=== PATIENT | male | born 1965 | race Caucasian/White ===

== ENCOUNTER → 2021-12-20 11:20 | Outpatient (BNVA) | payer BC, SELFPAY | PROVIDERS: Family Provider Internal Medicine; Visit Provider Family Medicine | DX: Z00.00 Encounter for general adult medical examination without abnormal findings (principal); F32.A Depression, unspecified; E78.5 Hyperlipidemia, unspecified; I10 Essential (primary) hypertension; G47.33 Obstructive sleep apnea (adult) (pediatric) | CPT/HCPCS: 80053; 80061; 84153 ==

== ENCOUNTER → 2021-12-31 11:51 | Outpatient (BNVA) | payer BC, SELFPAY | PROVIDERS: Family Provider Internal Medicine; PCP Family Medicine; Visit Provider Family Medicine | DX: Z00.00 Encounter for general adult medical examination without abnormal findings (principal); G47.33 Obstructive sleep apnea (adult) (pediatric); F32.A Depression, unspecified; E78.5 Hyperlipidemia, unspecified; I10 Essential (primary) hypertension | CPT/HCPCS: 80053; 80061; 84153 ==

== ENCOUNTER → 2022-01-22 11:25 | Outpatient (BNVA) | payer BC, SELFPAY | PROVIDERS: Family Provider Internal Medicine; PCP Family Medicine; Visit Provider Family Medicine | DX: E11.8 Type 2 diabetes mellitus with unspecified complications (principal) | CPT/HCPCS: 80048; 83036 ==

== ENCOUNTER → 2022-04-19 07:40 | Outpatient (BNVA) | payer BC, SELFPAY | PROVIDERS: Family Provider Internal Medicine; PCP Family Medicine; Visit Provider Family Medicine | DX: Z00.00 Encounter for general adult medical examination without abnormal findings (principal); E11.9 Type 2 diabetes mellitus without complications | CPT/HCPCS: 80048; 83036 ==

== ENCOUNTER → 2022-10-10 07:51 | Outpatient (BNVA) | payer BC, SELFPAY | PROVIDERS: Family Provider Internal Medicine; PCP Family Medicine; Visit Provider Family Medicine | DX: E11.9 Type 2 diabetes mellitus without complications (principal) | CPT/HCPCS: 80053; 80061; 83036 ==

== ENCOUNTER → 2023-01-03 11:20 | Outpatient (BNVA) | payer BC, SELFPAY | PROVIDERS: Family Provider Internal Medicine; PCP Family Medicine; Visit Provider Clinical Nurse Specialist Adult Health | DX: E86.0 Dehydration (principal) | CPT/HCPCS: 80048 ==

== ENCOUNTER 2023-03-15 13:43 | Emergency (ER) | payer BC, SELFPAY ==
[2023-03-15 13:48] VITALS: BP 176/114; PULSE 83; RESP 16; TEMP 36.6; O2SAT 96
--- NOTE | 2023-03-15 14:41 | XRR_ITS ---
PROCEDURE INFORMATION: Exam: XR Chest Exam date and time: 03/15/2023 3:44 PM Age: 57 years old Clinical indication: Cough and dyspnea; Additional info: Dyspnea/cough TECHNIQUE: Imaging protocol: Radiologic exam of the chest. Views: 1 view. COMPARISON: No relevant prior studies available. FINDINGS: Lungs: Unremarkable. No consolidation. Pleural spaces: Unremarkable. No pleural effusion. No pneumothorax. Heart/Mediastinum: Unremarkable. No cardiomegaly. Bones/joints: Unremarkable. XR/XR chest 1V portable [id number] IMPRESSION: No acute findings.
--- NOTE | 2023-03-15 14:41 | ECG_ITS ---
[facility] Test Date: 2023-03-15 Pat Name: Catalino Mcknight Department: Room: Gender: Male Family Assistant: : 1965 Requested By: Zhang Crane Order Number: [id number] Cosme MD: Serenity Alfaro M.D. Measurements Intervals [place] Rate: 74 P: 14 MA: 166 QRS: -39 QRSD: 108 T: -1 QT: 391 QTc: 435 Interpretive Statements SINUS RHYTHM LEFT AXIS DEVIATION [QRS AXIS < -30] No previous ECG available for comparison Electronically Signed On 03-15-2023 23:25:35 CDT by Serenity Alfaro M.D. [id number]
--- NOTE | 2023-03-15 15:45 | W.ED.GENADLT ---
HPI - General Adult General: Chief complaint: General Medical Stated complaint: bp, headache, weakness Time Seen by Provider: 03/15/23 14:40 Source: patient Mode of arrival: ambulatory History of Present Illness: 57-year-old male presents emergency room complaining of elevated blood pressure over the last 2 weeks. He had some palpitations as well. He will have blood pressure medication this triamterene-hydrochlorothiazide. No recent medication changes. Denies chest pain or shortness of breath. Generally has not felt well for the last couple of weeks he states he has been irritable not eating well. The only other concurrent symptoms he has noticed difficulty starting his urine. He has an appointment in a few weeks to see Dr. Mccarthy for primary care. No recent medication changes. Onset (ago): week(s) (2) Associated symptoms: Deny chest pain, confusion, cough, diaphoresis, decreased appetite, dyspnea, fevers/chills, headache(s), malaise, nausea, rash, palpitations, seizures, short of breath, syncope, vomiting or weakness Review of Systems Const: Denies: fever(s), chills, malaise or diaphoresis ENMT: Denies: throat pain, ear or mastoid pain, nasal discharge or nasal congestion Card: Denies: chest pain, palpitations or syncope Resp: Denies: dyspnea GI: Denies: abdominal pain, nausea or vomiting : Reports: difficulty starting urination; Denies: flank pain, dysuria, urinary frequency or urinary urgency Musc: Denies: neck pain or back pain Skin/Breast: Denies: rash Neuro: Denies: headache(s) or confusion PFS ED PFSH: Medical History Diabetes mellitus Hypertension Physical Exam Const: GENERAL APPEARANCE: cooperative and comfortable ORIENTATION/CONSCIOUSNESS: Yes awake, Yes oriented to person, Yes oriented to place and Yes oriented to time HENMT: COMMON NORMALS: normocephalic, atraumatic and hearing grossly normal bilaterally HEAD & SCALP: normocephalic and atraumatic Resp: COMMON NORMALS: normal respiratory effort, No retractions, No use of accessory muscles and clear to auscultation bilaterally AUSCULTATION: clear to auscultation bilaterally Cardio: COMMON NORMALS: regular rate, regular rhythm and No murmurs present (Cardio) RATE: regular rate RHYTHM: regular rhythm GI: COMMON NORMALS: Soft to palpation and No hepatosplenomegaly present AUSCULTATION: Yes normoactive bowel sounds PALPATION: Yes Soft to palpation, No Tenderness to palpation present (GI), No Guarding due to palpation present (GI) and Yes No hepatosplenomegaly present Extremity: COMMON NORMALS: normal to inspection, capillary refill normal, no clubbing, cyanosis or edema, no calf tenderness and no pedal edema Neuro: SENSORIUM/ORIENTATION: Yes oriented to person, Yes oriented to place and Yes oriented to time OTHER: Neurologically intact no focal neurologic deficits are noted. No asymmetrical weakness facial muscles bilaterally symmetrical movement in all extremities strength is normal Skin: COMMON NORMALS: no rashes or lesions noted GENERAL SKIN EXAM: no rashes or lesions noted Course Vital Signs: Vital signs: Vital Signs Temperature 97.9 F 03/15/23 13:48 Pulse Rate 83 03/15/23 13:48 Respiratory Rate 16 03/15/23 13:48 Blood Pressure 176/114 03/15/23 13:48 Pulse Oximetry 96 03/15/23 13:48 Oxygen Delivery Me thod Room Air 03/15/23 13:48 MDM - General Adult Medical Decision Making Blood pressure improved with medications given. Recommend that he stop the triamterene hydrochlorothiazide and change to amlodipine 5 mg daily and Toprol-XL 25 p.o. daily. His potassium should self-correct with stopping the triamterene hydrochlorothiazide. He has a Appointment coming up with Dr. Mccarthy they can recheck potassium at that time if it is felt appropriate as well as reevaluating blood pressure control. Medical Records I reviewed the patient's medical records. Lab Data I reviewed the patient's lab results. 03/15/23 16:31 03/15/23 16:31 Radiology Impressions Chest X-Ray 03/15/23 14:41 IMPRESSION: No acute findings. Laboratory Results WBC 9.4 10^3/uL (4.0-10.0) 03/15/23 16:31 RBC 5.01 10^6/uL (4.1-5.3) 03/15/23 16:31 Hgb 16.5 g/dL (11.7-16.6) 03/15/23 16:31 Hct 45.9 % (42.0-52.0) 03/15/23 16:31 MCV 91.6 fl (80-94) 03/15/23 16:31 MCH 32.9 pg (28.0-34.0) 03/15/23 16:31 MCHC 35.9 g/dL (30.0-36.0) 03/15/23 16:31 RDW 12.7 % (12.1-15.1) 03/15/23 16:31 Plt Count 202 10^3/cmm (130-400) 03/15/23 16:31 MPV 9.3 fL (7.4-10.4) 03/15/23 16:31 Neut % (Auto) 65.7 % 03/15/23 16:31 Lymph % (Auto) 23.3 % 03/15/23 16:31 [place] % (Auto) 7.9 % 03/15/23 16:31 Eos % (Auto) 1.8 % 03/15/23 16:31 Baso % (Auto) 1.0 % 03/15/23 16:31 Neut # (Auto) 6.14 10^3/uL (1.8-7.7) 03/15/23 16:31 Lymph # (Auto) 2.2 10^3/uL (0.8-4.8) 03/15/23 16:31 [place] # (Auto) 0.7 10^3/uL (0.2-0.9) 03/15/23 16:31 Eos # (Auto) 0.2 10^3/uL (0.0-0.8) 03/15/23 16:31 Baso # (Auto) 0.1 10^3/uL (0.0-0.1) 03/15/23 16:31 Nucleated RBC % (auto) 0 % 03/15/23 16:31 Nucleated RBCs # 0.0 /100WBC 03/15/23 16:31 Sodium 137 mmol/L (136-145) 03/15/23 16:31 Potassium 3.3 mmol/L (3.5-5.1) L 03/15/23 16:31 Chloride 95 mmol/L (98-107) L 03/15/23 16:31 Carbon Dioxide 29 mmol/L (22-29) 03/15/23 16:31 Anion Gap 16.3 (5-19) 03/15/23 16:31 BUN 14 mg/dL (6-20) 03/15/23 16:31 Creatinine 0.7 mg/dL (0.7-1.2) 03/15/23 16:31 GFR Calculation 116.7 mL/min (90-130) 03/15/23 16:31 Glucose 121 mg/dL (65-115) H 03/15/23 16:31 Calculated Osmolality 286 mOsm/kg (285-295) 03/15/23 16:31 Calcium 9.8 mg/dL (8.5-10.5) 03/15/23 16:31 Total Bilirubin 0.5 mg/dL (0.15-1.2) 03/15/23 16:31 AST 64 U/L (0-40) H 03/15/23 16:31 ALT 77 U/L (0-41) H 03/15/23 16:31 Alkaline Phosphatase 58 U/L (40-130) 03/15/23 16:31 Total Protein 7.5 g/dL (6.6-8.7) 03/15/23 16:31 Albumin 4.5 g/dL (3.5-5.2) 03/15/23 16:31 Globulin 3.0 g/dL (1.3-4.6) 03/15/23 16:31 Discharge Plan Discharge Patient Disposition: Home Clinical Impression: Hypertension, Hypokalemia Condition: Stable Prescriptions: New amlodipine 5 mg tablet 5 mg PO DAILY Qty: 30 0RF Toprol XL 25 mg tablet extended release 24 hr 25 mg PO DAILY Qty: 30 0RF Discontinued triamterene-hydrochlorothiazid 37.5-25 mg tablet 1 tab PO QAM No Action simvastatin 40 mg tablet 40 mg PO BEDTIME escitalopram oxalate 10 mg tablet 10 mg PO QAM Discharge Orders: Discharge ED (Routine); Ordered 03/15/23 Ordered By: Zhang Luis Referrals: Power Amador MD [Primary Care Provider] - Patient Instructions: Opioid Safety, Pain Management Activity Restrictions/Additional Instructions: You are seen today with elevated blood pressure. Recommend that you stop the triamterene hydrochlorothiazide start amlodipine and metoprolol. Follow-up with your doctor next week to reevaluate blood pressure he also had mildly low potassium here given a potassium supplement, Dr. Amador can recheck potassium next week. Coding Level of Care Code ED Line Up Worker for Kathi Stewart
[2023-03-15 16:44] LABS: Basophils # 0.1 10^3/uL (0.0-0.1); Eosinophils # 0.2 10^3/uL (0.0-0.8); Eosinophils % 1.8 %; Hematocrit 45.9 % (42.0-52.0); Hemoglobin 16.5 g/dL (11.7-16.6); Lymphocytes # 2.2 10^3/uL (0.8-4.8); Lymphocytes % 23.3 %; Mean Corpuscular HGB Conc 35.9 g/dL (30.0-36.0); Mean Corpuscular Hemoglobin 32.9 pg (28.0-34.0); Mean Corpuscular Volume 91.6 fl (80-94); Mean Platelet Volume 9.3 fL (7.4-10.4); Monocytes # 0.7 10^3/uL (0.2-0.9); Monocytes % 7.9 %; Neutrophils # 6.14 10^3/uL (1.8-7.7); Neutrophils % 65.7 %; Nucleated Red Blood Cells % 0 %; Platelet Count 202 10^3/cmm (130-400); Red Blood Count 5.01 10^6/uL (4.1-5.3); Red Cell Distribution Width 12.7 % (12.1-15.1); White Blood Count 9.4 10^3/uL (4.0-10.0)
[2023-03-15] MEDS: metoprolol tartrate 25 mg Tablet PO (16:48)
[2023-03-15] MEDS: labetalol 5 mg/mL SDV 20mL 10 MG IVP (16:48)
[2023-03-15 17:04] LABS: Alanine Aminotransferase 77 U/L (0-41); Albumin Level 4.5 g/dL (3.5-5.2); Alkaline Phosphatase 58 U/L (40-130); Anion Gap 16.3 (5-19); Aspartate Amino Transferase 64 U/L (0-40); Blood Urea Nitrogen 14 mg/dL (6-20); Calcium 9.8 mg/dL (8.5-10.5); Carbon Dioxide 29 mmol/L (22-29); Chloride 95 mmol/L (98-107); Glomerular Filtration Rate 116.7 mL/min (90-130); Glucose 121 mg/dL (65-115); Osmolality Calculated 286 mOsm/kg (285-295); Potassium 3.3 mmol/L (3.5-5.1); Sodium 137 mmol/L (136-145); Total Bilirubin 0.5 mg/dL (0.15-1.2); Total Protein 7.5 g/dL (6.6-8.7)
== END 2023-03-15 19:40 | disposition home or self-care (01) ==
PROVIDERS: Emergency Provider Family Medicine; PCP Family Medicine
DX: I10 Essential (primary) hypertension (principal); E87.6 Hypokalemia
CPT/HCPCS: 36415; 71045; 80053; 85025; 93005; 96374; 99285; J3490

== ENCOUNTER → 2023-03-19 12:01 | Outpatient (BNVA) | payer BC, SELFPAY | PROVIDERS: PCP Family Medicine; Visit Provider Family Medicine | DX: E87.6 Hypokalemia (principal); E86.0 Dehydration; R30.0 Dysuria | CPT/HCPCS: 81000 ==

== ENCOUNTER → 2023-04-18 08:28 | Outpatient (BNVA) | payer BC, SELFPAY | PROVIDERS: PCP Family Medicine; Visit Provider Family Medicine | DX: E86.0 Dehydration (principal); I10 Essential (primary) hypertension; E11.9 Type 2 diabetes mellitus without complications; E87.6 Hypokalemia | CPT/HCPCS: 80053; 80061; 83036; 85025 ==

== ENCOUNTER → 2023-05-01 14:53 | Outpatient (BNVA) | payer BC, SELFPAY | PROVIDERS: PCP Family Medicine; Visit Provider Family Medicine | DX: R35.0 Frequency of micturition (principal); R79.89 Other specified abnormal findings of blood chemistry | CPT/HCPCS: 80053; 84153 ==

== ENCOUNTER → 2023-07-09 08:15 | Outpatient (BNVA) | payer BC, SELFPAY | PROVIDERS: PCP Family Medicine; Visit Provider Family Medicine | DX: E11.9 Type 2 diabetes mellitus without complications (principal); I10 Essential (primary) hypertension; E10.9 Type 1 diabetes mellitus without complications | CPT/HCPCS: 80053; 80061; 83036; 85025 ==

== ENCOUNTER → 2023-07-15 14:39 | Outpatient (BNVA) | payer BC, SELFPAY | PROVIDERS: PCP Family Medicine; Visit Provider Family Medicine | DX: R79.89 Other specified abnormal findings of blood chemistry (principal) | CPT/HCPCS: 83540; 86140; 86705; 86706; 86709; 86803; 87340 ==

== ENCOUNTER 2023-07-25 06:43 | Outpatient (CLI) | payer BC, SELFPAY ==
--- NOTE | 2023-07-25 07:00 | USR_ITS ---
PROCEDURE INFORMATION: Exam: US Abdomen, Limited; Right Upper Quadrant Exam date and time: 07/25/2023 6:55 AM Age: 58 years old Clinical indication: Abnormal findings; Abnormal lab test; Elevated liver enzymes; Additional info: Elevated lfts TECHNIQUE: Imaging protocol: Real time ultrasound of the abdomen with image documentation. Limited exam focused on the right upper quadrant. COMPARISON: No relevant prior studies available. FINDINGS: Liver: Liver is diffusely increased in echogenicity, most commonly seen in hepatic steatosis, though other forms of parenchymal liver disease could have a similar appearance. This limits evaluation for subtle isoechoic masses but no masses are seen. Patent main portal vein with normal direction of flow. Gallbladder: Normal. No gallstones. There is no gallbladder wall thickening. Biliary ducts: Normal. No stones. No dilation. Pancreas: Visualized pancreas is unremarkable. Right kidney: Normal. No mass. No hydronephrosis. US/US liver [id number] IMPRESSION: Hyperechoic liver, which can be seen with fatty infiltration or hepatocellular disease.
== END 2023-07-25 06:44 | disposition home or self-care (01) ==
PROVIDERS: PCP Family Medicine; Visit Provider Family Medicine
DX: R79.89 Other specified abnormal findings of blood chemistry (principal)
CPT/HCPCS: 76705

== ENCOUNTER → 2023-10-27 08:26 | Outpatient (BNVA) | payer BC, SELFPAY | PROVIDERS: PCP Family Medicine; Visit Provider Family Medicine | DX: I10 Essential (primary) hypertension (principal); E11.9 Type 2 diabetes mellitus without complications; R79.89 Other specified abnormal findings of blood chemistry; F32.A Depression, unspecified | CPT/HCPCS: 80053; 80061; 83036; 85025; 86140 ==

== ENCOUNTER → 2023-12-25 15:16 | Outpatient (BNVA) | payer BC, SELFPAY | PROVIDERS: PCP Family Medicine; Visit Provider Family Medicine | DX: R10.9 Unspecified abdominal pain (principal); R11.10 Vomiting, unspecified | CPT/HCPCS: 80053; 83690; 85025 ==

== ENCOUNTER → 2025-02-10 08:32 | Outpatient (BNVA) | payer BC, SELFPAY | PROVIDERS: PCP Family Medicine; Visit Provider Family Medicine | DX: R10.9 Unspecified abdominal pain (principal) | CPT/HCPCS: 80053; 83690; 85025; 86140 ==